=== PATIENT | female | born 1975 | race Caucasian/White ===

== ENCOUNTER 2017-06-24 05:55 | Day surgery (SDC) | payer OTHER ==
[~2017-06-24] VITALS: Ht 175.3 cm; Wt 97.7 kg
[2017-06-24] MEDS ORDERED: OMEPRAZOLE (07:45)
[2017-06-24] MEDS ORDERED: IBUPROFEN (07:45)
[2017-06-24] MEDS ORDERED: FENTAnyl 50 MCG/ML VIAL ONE (08:38)
[2017-06-24] MEDS ORDERED: MIDAZOLAM 1 MG/ML 2 ML INJ ONE (08:38)
--- NOTE | 2017-06-24 08:46 | OPPN ---
Date/Time of Note Date/Time of Note DATE: 06/24/17 TIME: 08:41 Operative Report Preoperative Diagnosis Abdominal pain Chronic heartburn Postoperative Diagnosis Hernia Gastroesophageal reflux disease Gastritis with erosions Operation/Procedure Performed Esophagogastroduodenoscopy and biopsy Provider: LEXIS CARTAGENA MD Anesthesia Type: moderate sedation Estimated blood loss: none Transfusion Required: no Specimens Gastric biopsy Grafts/Implants: none Complications: no LEXIS CARTAGENA MD Jun 24, 2017 08:46
--- NOTE | 2017-06-24 10:12 | GILP ---
DATE OF PROCEDURE: 06/24/2017 PROCEDURE PERFORMED: Esophagogastroduodenoscopy and biopsy. PREOPERATIVE DIAGNOSES: 1. Abdominal pain. 2. Chronic heartburn. POSTOPERATIVE DIAGNOSES: 1. Hiatal hernia. 2. Gastroesophageal reflux disease. 3. Gastritis with erosions. 4. Gastric mucosal biopsies were taken for Helicobacter pylori test. INDICATION: Ms. Elba Mayo is a 42-year-old female patient who had upper abdominal pain and chronic heartburn not responding to therapy. The procedure and possible complications were well explained to the patient. The patient understood and consented to the procedure. DESCRIPTION OF PROCEDURE: Under influence of fentanyl and Versed, the gastroscope was carefully introduced into the esophagus, and under direct vision, it was advanced to the stomach, into the pylorus, into the duodenal bulb, and descending duodenum. FINDINGS: Esophagus: The patient had hiatal hernia and gastroesophageal reflux disease. Stomach: She had gastritis with erosions. Gastric mucosal biopsies were taken for H pylori test. Duodenum was normal. She tolerated the procedure very well. There was no complication from the procedure. At the end of procedure, she was awake with stable vital signs and she was discharged home in the care of her family. IMPRESSION: Please see postop diagnoses. PLAN: 1. Continue omeprazole. 2. Add Zantac 300 mg p.o. at bedtime. 3. Await H pylori test report. Dictated By: MD LUCIA Tabor/[email or web address] /Document#: [id number]
== END 2017-06-24 14:46 | disposition home or self-care (01) ==
LOC: GIL 05:55
PROVIDERS: ATTEND Internal Medicine Gastroenterology
DX: K21.9 Gastro-esophageal reflux disease without esophagitis (principal); K29.60 Other gastritis without bleeding; K25.9 Gastric ulcer, unspecified as acute or chronic, without hemorrhage or perforation; K44.9 Diaphragmatic hernia without obstruction or gangrene
CPT/HCPCS: 43239; 84703; 87081; J2250; J3010; Z7610